=== PATIENT | female | born 1965 | race Caucasian/White ===

== ENCOUNTER 2018-09-26 15:30 | Emergency (ER) | payer OTHER ==
[~2018-09-26] VITALS: Ht 162.6 cm; Wt 70.8 kg
[~2018-09-26 15:30] MED LIST: DESYREL50 MG PO; GYNODIOL1 MG PO; IBUPROFEN 600600 M1 PO; PERCOCET 5-3251 EACH PO; PREDNISONE 20 M20 M1 PO; PREDNISONE50 MG PO; TESSALON PERLE100 MG PO; TRAZODONE 150150 M1 PO; VENTOLIN HFA 1818 GM INH; ZOLOFT 50 MG TA50 MG PO; ZPAK PO
[2018-09-26] MEDS ORDERED: ELIMITE60 GM TOP (16:34)
[2018-09-26 17:07] VITALS: BP 137/81
== END 2018-09-26 17:00 | disposition home or self-care (01) ==
LOC: ER 15:30
DX: B86 Scabies (principal); F17.210 Nicotine dependence, cigarettes, uncomplicated; N18.4 Chronic kidney disease, stage 4 (severe); Z88.8 Allergy status to other drugs, medicaments and biological substances; Z88.5 Allergy status to narcotic agent; Z88.0 Allergy status to penicillin; Z90.5 Acquired absence of kidney